=== PATIENT | male | born 1940 | race Caucasian/White ===

== ENCOUNTER 2023-06-12 17:32 | Emergency (ER) | payer MEDICARE, OTHER ==
--- NOTE | 2023-06-12 17:34 | ERPHSYRPT ---
- History of Present Illness Time Seen by Provider: 06/12/23 17:33 Source: patient, EMS, old records Exam Limitations: clinical condition Physician History: This is an 83-year-old white male patient of nurse practitioner Peewee he does have a history of atrial fibrillation who was walking laps at the fitness center on the campus of the [facility] when he was noticed somewhat slumped over in a chair. Patient was then noticed and found to not have a pulse. CPR was start ed. It is estimated that the patient did not have a pulse for approximately 10 minutes. The AED was obtained and it advised shocking on 2 different occasions. Patient was brought to the emergency department via paramedics with CPR in progress. The Jay compression device was applied and a pulse return. Patient was immediately orotracheally intubated with by respiratory therapy. Patient arrived to the emergency department unresponsive Timing/Duration: today Activities at Onset: activity (Patient was walking laps indoors at a fitness center facility) Severity of Pain-Max: none Severity of Pain-Current: none Nitro Today/Relief: no nitro taken today Aspirin Treatment Today: no aspirin today Associated Symptoms: other (Unresponsive) Allergies/Adverse Reactions: No Known Drug Allergies Allergy (Verified 06/12/23 18:49) Home Medications: Aspirin EC 81 mg [Ecotrin 81 mg] 81 mg PO DAILY 06/12/23 [History] Carvedilol 12.5 mg [Coreg 12.5 mg] 12.5 mg PO BID 06/12/23 [History] Cholecalciferol (Vitamin D3) [Vitamin D] 2,000 unit PO DAILY 06/12/23 [History] Digoxin 0.125 mg Tablet [Lanoxin 0.125MG TABLET] 0.125 mg PO DAILY 06/12/23 [History] Empagliflozin [Jardiance] 25 mg PO DAILY 06/12/23 [History] Empagliflozin [Jardiance] 25 mg PO DAILY 06/12/23 [History] Enalapril Maleate 10 mg [Vasotec 10 MG] 5 mg PO DAILY 06/12/23 [History] Furosemide 40 mg [Lasix 40 MG] 40 mg PO DAILY 06/12/23 [History] Metformin HCl 500 mg [Glucophage 500 MG] 1,000 mg PO BID 06/12/23 [History] Multivitamin/Iron/Folic Acid [Centrum Adults Tablet] 1 tab PO DAILY 06/12/23 [History] Simvastatin 20Mg [Zocor 20Mg] 20 mg PO DAILY 06/12/23 [History] Spironolactone 25 mg [Aldactone 25 MG] 0.5 tab PO DAILY 06/12/23 [History] Travel Risk - International Travel Have you traveled outside of the country in past 3 weeks: No - Emerging Infectious Disease Are you exhibiting symptoms associated with any current EIDs: No - Review of Systems Constitutional: No Symptoms Eyes: No Symptoms Ears, Nose, & Throat: No Symptoms Respiratory: No Symptoms Cardiac: No Symptoms Abdominal/Gastrointestinal: No Symptoms Genitourinary Symptoms: No Symptoms Musculoskeletal: No Symptoms Skin: No Symptoms Neurological: No Symptoms Psychological: No Symptoms Endocrine: No Symptoms Hematologic/Lymphatic: No Symptoms Immunological/Allergic: No Symptoms All Other Systems: Reviewed and Negative - Past Medical History Pertinent Past Medical History: Yes - Nursing Vital Signs Nursing Vital Signs: Initial Vital Signs Blood Pressure 138/79 06/12/23 17:37 Pain Scale Pain Intensity 0 - Physical Exam General Appearance: thin, other (Unresponsive) Eye Exam: PERRL/EOMI, eyes nml inspection Ears, Nose, Throat Exam: normal ENT inspection, moist mucous membranes Neck Exam: normal inspection, non-tender, supple, full range of motion Respiratory Exam: normal breath sounds, lungs clear, airway intact, No chest tenderness, No respiratory distress Cardiovascular Exam: irregular Gastrointestinal/Abdomen Exam: soft, normal bowel sounds, No tenderness Rectal Exam: not done Back Exam: normal inspection, normal range of motion, No CVA tenderness, No vertebral tenderness Extremity Exam: normal inspection, normal range of motion, pelvis stable Neurologic Exam: other (Patient unresponsive on arrival to the emergency department) Skin Exam: normal color, warm, dry Lymphatic Exam: No adenopathy SpO2 Interpretation: borderline oxygenation O2 Delivery: Room Air - Course Nursing assessment & vital signs reviewed: Yes EKG Interpreted by Me: RATE (98), Non-specific ST Changes, Other (No acute ischemic changes on today's twelve-lead EKG.) Ordered Tests: Active Orders 24 hr Category Date Time Status Clearance Diver STAT Care 06/12/23 17:47 Active Catheter-[place] Knott STAT Care 06/12/23 17:49 Active EKG-ER Only STAT Care 06/12/23 17:46 Active IV Insertion STAT Care 06/12/23 17:46 Active Pulse Oximetry (ED) STAT Care 06/12/23 17:46 Active CHEST 1 VIEW (PORTABLE) Stat Exams 06/12/23 17:49 Completed CHEST WITH CONTRAST [CT] Stat Exams 06/12/23 18:20 Completed HEAD WITHOUT CONTRAST [CT] Stat Exams 06/12/23 18:19 Completed ABG [ARTERIAL BLOOD GASES] Stat Lab 06/12/23 18:05 Completed CBC W DIFF Stat Lab 06/12/23 17:45 Completed CMP Stat Lab 06/12/23 17:45 Completed D-DIMER QUANTITATIVE Stat Lab 06/12/23 17:45 Completed MAGNESIUM Stat Lab 06/12/23 17:45 Completed Manual Differential NC Stat Lab 06/12/23 17:45 Completed NT PRO BNPII Stat Lab 06/12/23 17:45 Completed TROPONIN Q4H Lab 06/12/23 17:45 Completed TROPONIN Q4H Lab 06/12/23 22:00 Ordered TROPONIN Q4H Lab 06/13/23 02:00 Ordered UA W/RFX UR CULTURE Stat Lab 06/12/23 17:45 Completed Standby ROUTINE RT 06/12/23 19:34 Active Ventilator Management STAT RT 06/12/23 18:18 Active Medication Summary Generic Name Dose Route Start Last Admin Trade Name Freq PRN Reason Stop Dose Admin Sodium Chloride 1,000 mls @ 100 mls/hr 06/12/23 18:00 06/12/23 19:05 Sodium Chloride 0.9% 1000 Ml IV 07/12/23 17:59 Infused .Q10H TYLER Infusion Midazolam HCl 50 mg/ Sodium 250 mls @ 9.375 mls/hr 06/12/23 18:25 06/12/23 19:02 Chloride IV 07/12/23 18:24 0.075 mg/kg/hr .Q24H PRN 28.125 mls/hr SEDATION Titration Protocol 0.025 MG/KG/HR Sodium Chloride 1,000 mls @ 100 mls/hr 06/12/23 19:45 06/12/23 19:48 Sodium Chloride 0.9% 1000 Ml IV 07/12/23 19:44 100 mls/hr .Q10H TYLER Administration Discontinued Medications Generic Name Dose Route Start Last Admin Trade Name Parth PRN Reason Stop Dose Admin Sodium Chloride Confirm 06/12/23 17:43 Sodium Chloride 0.9% 1000 Ml Administered 06/12/23 17:44 Dose 1,000 mls @ ud .ROUTE .STK-MED ONE Sodium Chloride Confirm 06/12/23 17:51 Sodium Chloride 0.9% 250 Ml Administered 06/12/23 17:52 Dose 250 mls @ ud IV .STK-MED ONE Midazolam HCl Confirm 06/12/23 17:40 Midazolam Hcl 5 Mg/5 Ml Vial Administered 06/12/23 17:41 Dose 5 mg .ROUTE .STK-MED ONE Midazolam HCl 5 mg 06/12/23 17:50 06/12/23 17:42 Midazolam Hcl 5 Mg/5 Ml Vial IV 06/12/23 17:51 5 mg STAT ONE Administration Midazolam HCl Confirm 06/12/23 17:51 Midazolam Hcl 50 Mg/10 Ml Vial Administered 06/12/23 17:52 Dose 50 mg .ROUTE .STK-MED ONE Morphine Sulfate Confirm 06/12/23 17:40 Morphine Sulfate 2 Mg/Ml Inj Administered 06/12/23 17:41 Dose 2 mg .ROUTE .STK-MED ONE Morphine Sulfate 2 mg 06/12/23 17:50 06/12/23 17:42 Morphine Sulfate 2 Mg/Ml Inj IV 06/12/23 17:51 2 mg STAT ONE Administration Ondansetron HCl Confirm 06/12/23 17:40 Ondansetron Hcl 4 Mg/2 Ml Vial Administered 06/12/23 17:41 Dose 4 mg .ROUTE .STK-MED ONE Ondansetron HCl 4 mg 06/12/23 17:50 06/12/23 17:41 Ondansetron Hcl 4 Mg/2 Ml Vial IV 06/12/23 17:51 4 mg STAT ONE Administration Lab/Rad Data: Laboratory Result Diagrams 06/12/23 17:45 06/12/23 17:45 Laboratory Results 06/12/23 06/12/23 06/12/23 Range/Units 18:05 17:45 17:45 WBC (4.0-10.5) x10^3/uL RBC (4.1-5.6) x10^6/uL Hgb (12.5-18.0) g/dL Hct (42-50) % MCV (78-100) fL MCH (26-32) pg MCHC (32-36) g/dL RDW (11.5-14.0) % Plt Count (150-450) x10^3/uL MPV (7.5-11.0) fL Segmented Neutrophils (36.-66.) % Lymphocytes (Manual) (24-44) % Monocytes (Manual) (0.0-12.0) % Eosinophils (Manual) (0.00-3.0) % Platelet Estimate (NORMAL) RBC Morphology Polychromasia Anisocytosis D-Dimer (0.0-0.50) mg/L Puncture Site RIGHT RADIAL pCO2 43 (35-45) mmHg pO2 491 H* (75-100) mmHg Base Excess -2.6 L (-2.0-2.0) O2 Saturation 98.8 (94-100) g/dF ABG pH 7.34 L (7.35-7.45) ABG HCO3 23.2 (22-28) ABG O2 Sat (Measured) 99.9 (95-100) % Benjamin Test YES A-a Gradient 168 a/A Ratio 0.75 Hemoglobin 12.2 Carboxyhemoglobin 0.4 (0.0-6.9) % THgb Methemoglobin 0.7 L (1.4-1.5) % Temperature 37.0 C POC O2 Flow Rate 100 % Vent Mode AC Vent Rate 12 /MIN Tidal Volume 500 cc PEEP 5 cmH2O Sodium (135-145) mmol/L Potassium 3.7 (3.5-5.1) mmol/L Chloride (98-107) mmol/L Carbon Dioxide (22-30) mmol/L Anion Gap (5-15) MEQ/L BUN (9-20) mg/dL Creatinine (0.66-1.25) mg/dL Estimated GFR ML/MIN Glucose (74-106) mg/dL Calcium (8.4-10.2) mg/dL Magnesium (1.6-2.3) mg/dL Total Bilirubin (0.2-1.3) mg/dL AST (17-59) U/L ALT (0-50) U/L Alkaline Phosphatase (38-126) U/L Troponin I < 0.012 (0.000-0.033) ng/mL NT-Pro-B Natriuret Pep 326 (<300) pg/mL Serum Total Protein (6.3-8.2) g/dL Albumin (3.5-5.0) g/dL Urine Color (Yellow) Urine Appearance (Clear) Urine pH (4.6-8.0) Ur Specific Dewey (1.005-1.030) Urine Protein (Negative) Urine Glucose (UA) (Negative) mg/dL Urine Ketones (Negative) Urine Blood (Negative) Urine Nitrite (Negative) Urine Bilirubin (Negative) Urine Urobilinogen (0.2) mg/dL Ur Leukocyte Esterase (Negative) U Hyaline Cast (Auto) (0-2) /LPF Urine Microscopic RBC (0-5) /HPF Urine Microscopic WBC (0-5) /HPF Ur Epithelial Cells (None Seen) /HPF Urine Bacteria (None Seen) /HPF Urine Culture Reflexed (NO) Digoxin < 0.4 L (0.8-1.9) ng/mL 06/12/23 06/12/23 06/12/23 Range/Units 17:45 17:45 17:45 WBC (4.0-10.5) x10^3/uL RBC (4.1-5.6) x10^6/uL Hgb (12.5-18.0) g/dL Hct (42-50) % MCV (78-100) fL MCH (26-32) pg MCHC (32-36) g/dL RDW (11.5-14.0) % Plt Count (150-450) x10^3/uL MPV (7.5-11.0) fL Segmented Neutrophils (36.-66.) % Lymphocytes (Manual) (24-44) % Monocytes (Manual) (0.0-12.0) % Eosinophils (Manual) (0.00-3.0) % Platelet Estimate (NORMAL) RBC Morphology Polychromasia Anisocytosis D-Dimer 3.91 H* (0.0-0.50) mg/L Puncture Site pCO2 (35-45) mmHg pO2 (75-100) mmHg Base Excess (-2.0-2.0) O2 Saturation (94-100) g/dF ABG pH (7.35-7.45) ABG HCO3 (22-28) ABG O2 Sat (Measured) (95-100) % Benjamin Test A-a Gradient a/A Ratio Hemoglobin Carboxyhemoglobin (0.0-6.9) % THgb Methemoglobin (1.4-1.5) % Temperature C POC O2 Flow Rate % Vent Mode Vent Rate /MIN Tidal Volume cc PEEP cmH2O Sodium 139 (135-145) mmol/L Potassium 3.9 (3.5-5.1) mmol/L Chloride 103 (98-107) mmol/L Carbon Dioxide 25 (22-30) mmol/L Anion Gap 14.8 (5-15) MEQ/L BUN 31 H (9-20) mg/dL Creatinine 1.36 H (0.66-1.25) mg/dL Estimated GFR 52.3 ML/MIN Glucose 183 H (74-106) mg/dL Calcium 9.3 (8.4-10.2) mg/dL Magnesium 2.2 (1.6-2.3) mg/dL Total Bilirubin 0.60 (0.2-1.3) mg/dL AST 105 H (17-59) U/L ALT 81 H (0-50) U/L Alkaline Phosphatase 61 (38-126) U/L Troponin I (0.000-0.033) ng/mL NT-Pro-B Natriuret Pep (<300) pg/mL Serum Total Protein 7.1 (6.3-8.2) g/dL Albumin 4.3 (3.5-5.0) g/dL Urine Color Yellow (Yellow) Urine Appearance Clear (Clear) Urine pH 6.5 (4.6-8.0) Ur Specific Dewey 1.025 (1.005-1.030) Urine Protein 30 (Negative) Urine Glucose (UA) >=1000 A (Negative) mg/dL Urine Ketones Trace A (Negative) Urine Blood Negative (Negative) Urine Nitrite Negative (Negative) Urine Bilirubin Negative (Negative) Urine Urobilinogen 0.2 (0.2) mg/dL Ur Leukocyte Esterase Negative (Negative) U Hyaline Cast (Auto) 3-5 A (0-2) /LPF Urine Microscopic RBC 0-2 (0-5) /HPF Urine Microscopic WBC 0-2 (0-5) /HPF Ur Epithelial Cells None Seen (None Seen) /HPF Urine Bacteria None Seen (None Seen) /HPF Urine Culture Reflexed NO (NO) Digoxin (0.8-1.9) ng/mL 04/21/24 Range/Units 17:45 WBC 15.0 H (4.0-10.5) x10^3/uL RBC 4.41 (4.1-5.6) x10^6/uL Hgb 13.3 (12.5-18.0) g/dL Hct 42.0 (42-50) % MCV 95.2 (78-100) fL MCH 30.2 (26-32) pg MCHC 31.7 L (32-36) g/dL RDW 13.2 (11.5-14.0) % Plt Count 244 (150-450) x10^3/uL MPV 9.7 (7.5-11.0) fL Segmented Neutrophils 39 (36.-66.) % Lymphocytes (Manual) 50 H (24-44) % Monocytes (Manual) 4 (0.0-12.0) % Eosinophils (Manual) 7 H (0.00-3.0) % Platelet Estimate NORMAL (NORMAL) RBC Morphology ABNORMAL Polychromasia 1+ Anisocytosis 1+ D-Dimer (0.0-0.50) mg/L Puncture Site pCO2 (35-45) mmHg pO2 (75-100) mmHg Base Excess (-2.0-2.0) O2 Saturation (94-100) g/dF ABG pH (7.35-7.45) ABG HCO3 (22-28) ABG O2 Sat (Measured) (95-100) % Benjamin Test A-a Gradient a/A Ratio Hemoglobin Carboxyhemoglobin (0.0-6.9) % THgb Methemoglobin (1.4-1.5) % Temperature C POC O2 Flow Rate % Vent Mode Vent Rate /MIN Tidal Volume cc PEEP cmH2O Sodium (135-145) mmol/L Potassium (3.5-5.1) mmol/L Chloride (98-107) mmol/L Carbon Dioxide (22-30) mmol/L Anion Gap (5-15) MEQ/L BUN (9-20) mg/dL Creatinine (0.66-1.25) mg/dL Estimated GFR ML/MIN Glucose (74-106) mg/dL Calcium (8.4-10.2) mg/dL Magnesium (1.6-2.3) mg/dL Total Bilirubin (0.2-1.3) mg/dL AST (17-59) U/L ALT (0-50) U/L Alkaline Phosphatase (38-126) U/L Troponin I (0.000-0.033) ng/mL NT-Pro-B Natriuret Pep (<300) pg/mL Serum Total Protein (6.3-8.2) g/dL Albumin (3.5-5.0) g/dL Urine Color (Yellow) Urine Appearance (Clear) Urine pH (4.6-8.0) Ur Specific Dewey (1.005-1.030) Urine Protein (Negative) Urine Glucose (UA) (Negative) mg/dL Urine Ketones (Negative) Urine Blood (Negative) Urine Nitrite (Negative) Urine Bilirubin (Negative) Urine Urobilinogen (0.2) mg/dL Ur Leukocyte Esterase (Negative) U Hyaline Cast (Auto) (0-2) /LPF Urine Microscopic RBC (0-5) /HPF Urine Microscopic WBC (0-5) /HPF Ur Epithelial Cells (None Seen) /HPF Urine Bacteria (None Seen) /HPF Urine Culture Reflexed (NO) Digoxin (0.8-1.9) ng/mL - Progress Progress: improved, re-examined Air Movement: good Progress Note: 06/12/23 19:43 My medical decision making and the assignment of high medical complexity to this patient's medical issue today is based on review of the patient's past medical history, review of the patient's medication list, review the patient drug allergy list, history present illness and physical findings on examination. The patient obviously was unresponsive and unable to provide us with history and therefore additional history was obtained from the paramedics, the individuals at the scene at the fitness center who are here, and finally additional history was obtained from the patient's daughter and the patient's granddaughter. Additional history included that the patient does have atrial fibrillation and is on digoxin. He also has a history of hypertension, diabetes and hyperlipidemia. The workup included cardiac arrest code team intervention including Jay compression device, orotracheal intubation performed by respiratory therapy, chest x-ray for ET tube placement as well as evaluation of the patient's lung beyer, twelve-lead EKG after return of patient's pulse, infusion of intravenous saline, 2 mg of intravenous morphine, 4 mg of intravenous Zofran, 5 mg of intravenous Versed followed by Versed drip. We ordered a CBC, CMP, troponin level, D-dimer level. We placed Knott catheter and ordered a urinalysis. I interpreted the patient's chest x-ray. I interpreted the patient's laboratory data results which showed an elevated D-dimer and therefore we ordered a CT scan of the chest with contrast to evaluate for pulmonary embolus. CT scan of the head without contrast was interpreted by the radiologist and I reviewed the impression. The patient states no acute intracranial abnormality. 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 There is cerebral atrophy present. There is no midline shift. There is no intracerebral or extra-axial hematoma or hemorrhage present. 06/12/23 20:24 CT scan of the chest with contrast was performed. This study was interpreted by the radiologist and I reviewed the impression. Impression shows no pulmonary embolism. There is no acute cardiopulmonary process. No evidence for pneumonia. 06/12/23 20:48 I discussed transfer of this [facility]. I reviewed the patient history, I reviewed the the patient's presenting complaint and the results of the workup performed. He is aware of the results of the studies and the response of the patient to our workup and intervention. He would like the patient to receive 150 mg of intravenous amiodarone 1 time prior to patient being transferred. He does except the patient in transfer. Blood Culture(s) Obtained: No Antibiotics given: No Counseled pt/family regarding: lab results, diagnosis, rad results Medical Desision Making - Independent Historian Additional History obtained from: Family - Diagnostic Testing Diagnostic test were ordered, analyzed, and reviewed by me: Yes Radiological Interpretation: Reviewed by me, Teleradiologist Report - Risk of complications The pt has a high risk of morbidity or mortality based on: Decision regarding hospitilization or escalation of hosp level of care - Departure Departure Disposition: Transfer Clinical Impression: Cardiac arrest, On mechanically assisted ventilation Condition: Serious Critical Care Time: Yes Critical Care Time(excluding separately billable procedures): Critical 30-74 mins (65 minutes) Referrals: DAMIÁN LESLIE NP [Primary Care Provider] - Follow up/PCP as directed
[2023-06-12] MEDS ORDERED: Zofran 4 MG/2 ML VIAL ONE (17:40)
[2023-06-12] MEDS ORDERED: VERSED 5 MG/5 ML ONE (17:40)
[2023-06-12] MEDS ORDERED: MORPHINE SULFATE 2 MG INJ ONE (17:40)
[2023-06-12] MEDS: Zofran 4 MG/2 ML VIAL IV ONE (17:41)
[2023-06-12] MEDS: VERSED 5 MG/5 ML IV ONE (17:42)
[2023-06-12] MEDS: MORPHINE SULFATE 2 MG INJ IV ONE (17:42)
[2023-06-12] MEDS ORDERED: Sodium Chloride 0.9% 1000 ML 1,000 ML ONE ×2 (17:43→19:46)
[2023-06-12] MEDS: Sodium Chloride 0.9% 1000 ML 1,000 ML IV SCH ×2 (17:44→19:48)
[2023-06-12] MEDS ORDERED: Versed 50 MG/ 10 Ml MDV ONE (17:51)
[2023-06-12] MEDS ORDERED: Sodium Chloride 0.9% 250 ML 250 ML IV ONE (17:51)
[2023-06-12 17:54] LABS: Hemoglobin 13.3 g/dL (12.5-18.0); Mean Cell Volume 95.2 fL (78-100); Mean Corpuscular Hemoglobin 30.2 pg (26-32); Mean Corpuscular Hgb Concent. 31.7 g/dL (32-36); Mean Platelet Volume 9.7 fL (7.5-11.0); Platelet Count 244 x10^3/uL (150-450); Red Blood Count 4.41 x10^6/uL (4.1-5.6); Red Cell Distribution Width 13.2 % (11.5-14.0)
[2023-06-12] MEDS: Versed 50 MG/ 10 Ml MDV*** 50 MG in Sodium Chloride 0.9% 250 ML 240 ML IV PRN (17:54)
[2023-06-12 18:02] VITALS: O2SAT 100
[2023-06-12 18:02] LABS: ALBUMIN 4.3 g/dL (3.5-5.0); ANION GAP 14.8 MEQ/L (5-15); Appearance Clear (Clear); BILIRUBIN,TOTAL 0.6 mg/dL (0.2-1.3); Bacteria None Seen /HPF (None Seen); Bilirubin Negative (Negative); Blood Negative (Negative); Calcium 9.3 mg/dL (8.4-10.2); Creatinine 1 1.36 mg/dL (0.66-1.25); EST GLOMERULAR FILTRATION RATE 52.3 ML/MIN; Epithelial Cells None Seen /HPF (None Seen); Glucose, Urine >=1000 mg/dL (Negative); Ketones Trace (Negative); Leukocyte Esterase Negative (Negative); MAGNESIUM 2.2 mg/dL (1.6-2.3); Nitrite Negative (Negative); Ph 6.5 (4.6-8.0); Potassium 3.9 mmol/L (3.5-5.1); Protein,Urine Dip 30 (Negative); RBC 0-2 /HPF (0-5); Specific Gravity 1.025 (1.005-1.030); Total Protein 7.1 g/dL (6.3-8.2); Urobilinogen 0.2 mg/dL (0.2); WBC 0-2 /HPF (0-5)
[2023-06-12 18:06] LABS: ADD URINE CULTURE? NO (NO)
[2023-06-12 18:14] LABS: NT PRO BNPII 326 pg/mL (<300); TROPONIN < 0.012 ng/mL (0.000-0.033)
[2023-06-12 18:15] LABS: A-aADO2 168; ABG HEMOGLOBIN 12.2; ABG POTASSIUM 3.7 (3.5-5.1); ARTERIAL BLD GAS O2 SATURATION 99.9 % (95-100); ARTERIAL BLOOD GAS BASE EXCESS -2.6 (-2.0-2.0); ARTERIAL BLOOD GAS FIO2 100 %; ARTERIAL BLOOD GAS PCO2 43 mmHg (35-45); ARTERIAL BLOOD GAS PO2 491 mmHg (75-100); ARTERIAL BLOOD GAS pH 7.34 (7.35-7.45); CARBOXYHEMOGLOBIN 0.4 % THgb (0.0-6.9); HCO3- 23.2 (22-28); HGB O2 SAT 98.8 g/dF (94-100); Methhemoglobin 0.7 % (1.4-1.5); paO2 pAO1 0.75
[2023-06-12 18:16] LABS: ABG SITE RIGHT RADIAL; ALLEN TEST OK? YES; ARTERIAL BLD GAS TIDAL VOLUME 500 cc; ARTERIAL BLOOD GAS PEEP 5 cmH2O; ARTERIAL BLOOD GAS VENT MODE AC; ARTERIAL BLOOD GAS VENT RATE 12 /MIN
[2023-06-12 18:21] LABS: Eosinophil 7 % (0.00-3.0); Lymphocytes 50 % (24-44); Monocyte 4 % (0.0-12.0); Neutrophils 39 % (36.-66.); Total Cells Counted 100
[2023-06-12 18:22] LABS: Platelet Estimate NORMAL (NORMAL)
[2023-06-12 18:23] LABS: ANISOCYTOSIS 1+; Polychromasia 1+
--- NOTE | 2023-06-12 19:34 | XRAY ---
CLINICAL HISTORY: Collapsed; unresponsive COMPARISON: None. TECHNIQUE: Axial CT scan of the brain was performed from the skull base to the high parietal region with multiple formats. One of the following dose reduction techniques were utilized for this exam: Automated exposure control, adjustment of the mA and/or kV according to patient size, use of iterative reconstruction. CTDI: 53.92 mGy, DLP: 1112.15 mGy-cm. 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 Small lacunar hypodense lesions in right striatum, sequelar. Magallanes-white matter differentiation is maintained. No midline shifts or deformity. No intracerebral or extra axial hematoma. Age-matched cerebral atrophic changes as evidenced by the prominence of cortical sulcal and gyral pattern and mild prominent lateral ventricles. Normal CT appearance of the posterior fossa structures namely the cerebellar hemispheres, brainstem and cerebellar peduncles. Moderate calcifications in vertebral and basilar arteries. The IACs are unremarkable. The cerebello-pontine angles are clear. The pituitary gland, the pineal gland, the optic chiasm is unremarkable. The osseous structures in the skull base are unremarkable. No definite calvarium fractures. Deviation of the nasal septum to the right. Partial filling with mucous material in right maxillary sinus Endotracheal tube. IMPRESSION: 1. No acute intracranial abnormality. 2. 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 3. Small lacunar hypodense lesions in right striatum, sequelae. 4. Age-matched cerebral atrophic changes. [facility] was called at at 06:27 PM [employer]OR [employer]OUND, 06/12/2023 and Stroke results were verbally communicated to Yani. Electronically Signed by: Jennifer Santos MD. (06/12/2023 19:30:07 EDT)
--- NOTE | 2023-06-12 20:13 | XRAY ---
CLINICAL HISTORY: Collapsed; elevated D-dimer COMPARISON: None. TECHNIQUE: Contiguous 3.[address] images of the chest were acquired with administration of intravenous contrast. Coronal and sagittal reconstructions were obtained.One of the following dose reduction techniques were utilized for this exam: Automated exposure control, adjustment of the mA and/or kV according to patient size, use of iterative reconstruction FINDINGS: No filling defects compatible with pulmonary embolism identified in pulmonary artery, right and left branches, lobar branches, or segmental branches. Linear parenchymal tracts in both lung parenchymas predominantly in lower lobes, related to laminar atelectasis. Tracheal tube with tip above the fatoumata. No free or encysted pleural effusion. Heart size is normal, and there is no pericardial effusion. No pathologically enlarged mediastinal, hilar or axillary lymph node identified. There is no definite mass lesion in the chest wall. Scanned upper abdomen is unremarkable. Decreased bone density and mild signs of thoracic spondylosis. IMPRESSION: 1. No filling defects compatible with pulmonary embolism identified. 2. Linear parenchymal tracts in both lung parenchymas predominantly in lower lobes, related to laminar atelectasis. 3. Tracheal tube with tip above the fatoumata. Electronically Signed by: Jennifer Santos MD. (06/12/2023 20:08:01 EDT)
--- NOTE | 2023-06-12 20:36 | XRAY ---
Indication: Endotracheal tube placement. Comparison: None Portable chest demonstrates endotracheal tube tip 4 cm above fatoumata. Remaining heart and lungs unremarkable. Bony thorax intact
[2023-06-12] MEDS ORDERED: Cordarone 150 MG/3 ML Injection IV ONE (20:47)
[2023-06-12 21:03] VITALS: RESP 14; TEMP 96.9
[2023-06-12] MEDS ORDERED: Cordarone 150 MG/3 ML Injection ONE (21:17)
[2023-06-12] MEDS ORDERED: NEXTERONE 360 MG/200 ML BAG 360 MG/200 ML PLAST..BAG IV SCH (21:30)
[2023-06-12 22:22] VITALS: BP 119/75; PULSE 73
== END 2023-06-12 22:00 | disposition short-term general hospital (02) ==
LOC: ED 17:32
DX: I46.9 Cardiac arrest, cause unspecified (principal); Z99.11 Dependence on respirator [ventilator] status; R40.4 Transient alteration of awareness; I48.91 Unspecified atrial fibrillation; I10 Essential (primary) hypertension; E11.9 Type 2 diabetes mellitus without complications; E78.5 Hyperlipidemia, unspecified; Z79.84 Long term (current) use of oral hypoglycemic drugs; Z79.899 Other long term (current) drug therapy
CPT/HCPCS: 36000; 36415; 36600; 51702; 70450; 71045; 71260; 80053; 80162; 81001; 82375; 82803; 83735; 83880; 84484; 85025; 85379; 93005; 93041; 94002; 94760; 94799; 96365; 96374; 96375; 99285; 99291; J0282; J2250; J2270; J2405